=== PATIENT | female | born 1945 | race Hispanic/Latino ===

== ENCOUNTER 2019-01-14 14:44 | Observation (INO) | payer MEDICARE ==
[2019-01-14] VITALS (9 sets, daily range): BP systolic 112–153; BP diastolic 53–89
[~2019-01-14] VITALS: Ht 154.9 cm; Wt 73.5 kg
[~2019-01-14 14:44] MED LIST: ASPIR 8181 MG PO; ATORVASTATIN CA20 MG PO; CALCIUM PO; CLOPIDOGREL75 MG PO; JENTADUETO 2.51 EAC2 PO; LISINOPRIL10 MG PO; METOPROLOL SUCC50 MG PO; SANTYL OINTMENT TOP
--- OUTSIDE RECORDS SUMMARY | 2019-01-14 14:46 | XMS REPORT ---
Author Author [facility] Address Unknown Phone Unavailable Care Team Providers Care Recycle Coordinator Name Role Phone Unavailable Unavailable Payers Payer Name Policy Type Policy Number Effective Date Expiration Date Problems This patient has no known problems. Allergies, Adverse Reactions, Alerts Allergy Name Allergy Type Status Severity Reaction(s) Onset Date Inactive Date Treating Clinician Comments No Known Allergies DA Active U 2015-07-16 00:00:00 Medications This patient has no known medications. Encounters Start Date/Time End Date/Time Encounter Type Admission Type Attending Clinicians Care Facility Care Department Encounter ID 2019-01-12 13:36:49 Outpatient [id number]
--- NOTE | 2019-01-14 15:25 | NUR ---
Notified Dr. Renteria of no labs ordered for patient. Dr. Renteria ordered CBC and BMP. Notified Dr. Renteria that patient took JentaduetoXR 2.5mg/1000mg which has metformin. Dr. Renteria stated no new orders at this time.
--- NOTE | 2019-01-14 15:29 | NUR ---
Notified Louise in lab of stat labs of patient in [facility]. Louise verbalized understanding.
--- NOTE | 2019-01-14 15:45 | NUR ---
Notified Dr. Renteria patient report eating tamales at 1230. Dr. Renteria verbalized understanding and no new orders at this time.
[2019-01-14 15:57] LABS: BASOPHILS % 0.3 % (0.0-1.0); EOSINOPHILS # (AUTO) 0.1 (0.0-0.4); EOSINOPHILS % 0.6 % (0.0-6.0); HEMATOCRIT 34.4 % (34.2-44.1); HEMOGLOBIN 11.6 g/dL (12.0-16.0); LYMPHOCYTES % 16.9 % (18.0-39.1); MEAN CORPUSCULAR HEMOGLOBIN 30.1 pg (28-32); MEAN CORPUSCULAR HGB CONC 33.7 g/dL (31-35); MEAN CORPUSCULAR VOLUME 89.1 fL (81-99); MONOCYTES # (AUTO) 0.8 (0.2-0.8); MONOCYTES % 7.1 % (4.4-11.3); NEUTROPHILS # (AUTO) 8.7 (2.1-6.9); NEUTROPHILS % 74.5 % (38.7-80.0); PLATELET COUNT 233 x10e3/uL (140-360); RED BLOOD COUNT 3.86 x10e6/uL (3.6-5.1); RED CELL DISTRIBUTION WIDTH 12.9 % (11.7-14.4)
[2019-01-14] MEDS ORDERED: TYLENOL EXTRA500 MG PO (16:00)
[2019-01-14 16:13] LABS: ANION GAP 16.5 mmol/L (8-16); BLOOD UREA NITROGEN 12 mg/dL (7-26); BUN/CREATININE RATIO 17 (6-25); CALCIUM 10.1 mg/dL (8.4-10.2); CARBON DIOXIDE 25 mmol/L (22-29); CHLORIDE 98 mmol/L (98-107); CREATININE, SERUM 0.72 mg/dL (0.57-1.11); EST GLOMERULAR FILTRATION RATE > 60 ML/MIN (60-); GLUCOSE 143 mg/dL (74-118); POTASSIUM 4.5 mmol/L (3.5-5.1); SODIUM 135 mmol/L (136-145)
[2019-01-14] MEDS ORDERED: FENTANYL CITRATE/PF 100MCG/2 ML INJ ONE (17:27)
[2019-01-14] MEDS ORDERED: HEPARIN SOD (PORCINE) 1000 UNIT/ML 30ML ONE (17:27)
[2019-01-14] MEDS ORDERED: MIDAZOLAM HCL 2 MG/2 ML VIAL ONE ×2 (17:27→18:04)
[2019-01-14] MEDS ORDERED: LIDOCAINE HCL 2% LOCAL 20 ML VIAL ONE (17:27)
[2019-01-14] MEDS ORDERED: IOPAMIDOL 300MG/ML 100 ML INFUS..BTL IV ONE (17:28)
[2019-01-14] MEDS ORDERED: SODIUM CHLORIDE 0.9% 1000ML 2,000 ML ONE (17:28)
[2019-01-14] MEDS ORDERED: NITROGLYCERIN/D5W 200 MCG/ML 250 ML ONE (17:28)
[2019-01-14] MEDS ORDERED: HEPARIN SOD/SOD CHLORIDE 2,000 ML ONE (17:28)
[2019-01-14] MEDS ORDERED: VERAPAMIL HCL 2.5 MG/ML 2 ML VIAL ONE (18:07)
[2019-01-14] MEDS ORDERED: SODIUM CHLORIDE 0.9% 1000ML 1,000 ML ONE (18:07)
[2019-01-14] MEDS ORDERED: PROTAMINE SULFATE 10 MG/ML 5 ML VIAL ONE (18:21)
--- NOTE | 2019-01-14 18:35 | NUR ---
183 Received pt from slab stripper to #8 Identiferx2 Handoff from Claudia JOHNS Pt with c/o to rt leg cold has Doppler pulses present only. Back to baseline orientation. Resp shallow and regular. 99% sat Abdomen soft and non tender Denies necessity to defecate or urinate Iv 20g left ac infusing a 100cc hr 800cc left in bag NS. Pt had Balloon and CSI Dr Renteria retrograde cannulation in rt groin.6Fr. Act reported 148 ready to pull and cath. veterinary technologist requested to come to bedside and atropine ready. Family did she pt and explained importance to keep rt leg and head down. 1850 Rt sheath manual pressure applied for 19minutes and stasis reported achieved. Jeferson patch in place. sloight spot circled on jeferson but noted acceptable to staff and circled Jeferson patch site and dated. Family at bedside denies c/o other than cold. Bs 92 and family assisting wiht food tray. Monitor NSR No gross issues pain pallor pressure or dysrhythmia ds/rn.
[2019-01-14] MEDS ORDERED: ATROPINE SULFATE 0.1 MG/ML 10ML SYR ONE (19:03)
--- NOTE | 2019-01-14 19:57 | NUR ---
1956 READY TO MOVE. Chilo report phoned to Chilo RN .Rt groin site stable No gross issue pain pallor pressure or dysthrthmia. Has co of coldness to heriberto unchanged form admission. Pt has Dr Renteria CSI and Balloon rt groin retrograde approach stasis achieved form sheath pull at 1810 19min hold and Suellen patch intact. Bs 98. served diet Transported to floor car per stretcher with transport specialist stable vs and ekg No gross sign of bleeding. ds/rn
--- NOTE | 2019-01-14 20:16 | NUR ---
2016 stasis still ok to rt groin pt going to room 175 Transfer and face to face report to Chilo Arango. Iv infusing via dial a flow no s/s infiltration Monitor and vs stable. Family on escort also to room Void qs on bed anaya. Back to baseline tolerated food. Tel #[address] on transport via stretcher. Left pt room call light at bedside, Side rails up and bed in low position.
[2019-01-14] MEDS ORDERED: ACETAMINOPHEN 325 MG TAB PO PRN (21:15)
[2019-01-14] MEDS ORDERED: HYDRALAZINE HCL 20 MG/ML VIAL IV PRN (21:15)
[2019-01-14] MEDS: MORPHINE SULFATE INJ 4 MG/ML INJ 1ML IV PRN (21:43)
[2019-01-15 04:22] VITALS: BP 145/67
[2019-01-15] MEDS: MORPHINE SULFATE INJ 4 MG/ML INJ 1ML IV PRN ×2 (06:17→09:57)
[2019-01-15 07:57] VITALS: BP 164/72
[2019-01-15] MEDS ORDERED: METFORMIN HCL PO SCH (08:00)
[2019-01-15] MEDS ORDERED: LINAGLIPTIN PO SCH (08:00)
[2019-01-15] MEDS ORDERED: [UNRECOGNIZED DRUG - OTHER] PO SCH (08:00)
[2019-01-15] MEDS ORDERED: METOPROLOL SUCCINATE 50 MG TAB XL PO SCH (09:00)
[2019-01-15] MEDS ORDERED: CLOPIDOGREL BISULFATE 75 MG TAB PO SCH (09:00)
[2019-01-15] MEDS ORDERED: CALCIUM CARBONATE 500 MG CHEWABLE TABS PO SCH (09:00)
[2019-01-15] MEDS ORDERED: ASPIRIN 81 MG CHEW TAB PO SCH (09:00)
[2019-01-15] MEDS ORDERED: NON-FORMULARY MEDICATION ([Calcium] 600 MG) PO SCH (09:00)
[2019-01-15] MEDS ORDERED: ATORVASTATIN 20 MG TAB PO SCH (09:00)
[2019-01-15] MEDS ORDERED: LISINOPRIL 10 MG TAB PO SCH (09:00)
--- NOTE | 2019-01-15 13:57 | Progress Note ---
DATE: 01/15/2019 Cardiology Progress Note SUBJECTIVE: The patient is without any new complaints this morning. She states that she slept well and feels fine. She is status post peripheral angiogram and intervention yesterday. OBJECTIVE: VITAL SIGNS: Temperature 95.8, pulse 70, respiratory rate 20, blood pressure 164/72, and oxygen saturation 98% on room air. CARDIOVASCULAR MEDICATIONS: 1. Lisinopril 10 mg p.o. daily. 2. Plavix 75 p.o. daily. 3. Aspirin 81 mg p.o. daily. 4. Atorvastatin 40 mg p.o. at bedtime. LABS: From yesterday; WBC 11.68, hemoglobin 11.6, hematocrit 34.4, and platelets 233. Sodium 135, potassium 4.5, BUN 12, creatinine 0.72, and calcium 10.1. OBJECTIVE: GENERAL: Alert and oriented x3. Resting comfortably in bed. Does not appear to be in any acute distress. LUNGS: Diminished breath sounds in posterior lower lobes, otherwise clear to auscultation. CARDIOVASCULAR: Regular rate and rhythm. ABDOMEN: Soft and nontender. LOWER EXTREMITIES: Right lower extremity with a wound and dressing in place. Absent pedal pulses, but positive with Doppler. ASSESSMENT: Peripheral arterial disease, status post right ALBERT atherectomy. Very poor outflow. RECOMMENDATIONS: Okay to discharge this patient. Right groin access with no evidence of bleeding. Family instructed on how to monitor the site. The patient is to follow up with Dr. Milton Renteria in the next two weeks. Continue medical therapy. Refer the patient to Wound Care and possible TMA. We will continue to monitor. Dictated by Nell Slaughter, BECCA MD GEORGE ForbesV/DEBORAH /[id number]
[2019-01-15] MEDS ORDERED: ATORVASTATIN 40 MG TAB PO SCH (21:00)
--- NOTE | 2019-02-21 07:40 | Operative Report ---
DATE OF PROCEDURE: 01/14/2019 SURGEON: Milton Renteria MD CARDIAC FOLDING MACHINE TENDER PROCEDURE NOTE INDICATIONS: Peripheral arterial disease with critical limb ischemia of the right lower extremity. PROCEDURES PERFORMED: 1. Abdominal aortogram. 2. Selective third-order catheter placement from the left femoral artery to right superficial femoral artery. 3. Additional third-order catheter placement from the left femoral artery to right dorsalis pedis artery. 4. Atherectomy and angioplasty of the right anterior tibial artery. 5. Secondary thrombectomy of the right anterior tibial artery. COMPLICATIONS: None. RECOMMENDATIONS: Aggressive medical therapy including wound care and hyperbaric oxygen therapy. DESCRIPTION OF PROCEDURE: Access obtained in the left femoral artery. Abdominal aortogram demonstrates delayed access obtained in the right femoral artery in antegrade fashion. Unilateral extremity angiogram with third-order catheter placement with completely occluded tibioperoneal trunk, peroneal and posterior tibial arteries. Anterior tibial artery was a single-vessel runoff with very poor outflow from the dorsalis pedis artery, 90% stenosis of right anterior tibial artery, 90% in-stent restenosis. The lesions were crossed using a Viper wire. The patient received heparin for anticoagulation. Angioplasty and atherectomy of the right anterior tibial artery with large amounts of visible thrombus were performed. Manual aspiration thrombectomy was needed of the right anterior tibial artery. Single-vessel runoff was established to the level of the ankle, however, very poor outflow was noted. Right groin sheath was removed under manual pressure. Milton Renteria MD KSB/MODL /[id number]
== END 2019-01-15 11:24 | disposition home or self-care (01) ==
LOC: CATH LAB 14:44 → IMCU 20:15
PROVIDERS: ADMIT Internal Medicine Interventional Cardiology; ATTEND Internal Medicine Interventional Cardiology
DX: I25.118 Atherosclerotic heart disease of native coronary artery with other forms of angina pectoris (principal); I82.409 Acute embolism and thrombosis of unspecified deep veins of unspecified lower extremity; I70.211 Atherosclerosis of native arteries of extremities with intermittent claudication, right leg; Z01.812 Encounter for preprocedural laboratory examination; I69.392 Facial weakness following cerebral infarction; I69.328 Other speech and language deficits following cerebral infarction; I10 Essential (primary) hypertension; E78.00 Pure hypercholesterolemia, unspecified
CPT/HCPCS: 36415; 37186; 37229; 75710; 80048; 82948; 85025; C1724; C1725; C1766; C1769 ×2; C1887; G0378 ×2; J1644; J2001; J2250; J2270 ×2; J2720; J7030; Q9967; J3010